=== PATIENT | male | born 1995 | race Caucasian/White ===

== ENCOUNTER → 2024-04-15 | Outpatient (REF) | payer OTHER ==
[~2024-04-15] MED LIST: CEPH500C PO
[2024-04-15 14:27] LABS: Trichomonas vaginalis (AMP) NOT DETECTED (NEGATIVE)
[2024-04-15 14:51] LABS: GC DNA AMPLIFICATION NEGATIVE (NEGATIVE)
[2024-04-15 19:42] LABS: ALBUMIN 4.2 G/DL (3.2-5.2); ALKALINE PHOSPHATASE 62 U/L (40-129); ALT/SGPT 21 U/L (7.0-40); AST/SGOT 11 U/L (<34); BILIRUBIN,TOTAL 0.4 MG/DL (0.3-1.2); BLOOD UREA NITROGEN 12 MG/DL (9-23); CALCIUM LEVEL 9.6 MG/DL (8.5-10.1); CARBON DIOXIDE LEVEL 30 MMOL/L (20-31); CHLORIDE LEVEL 105 MMOL/L (98-107); CHOLESTEROL LEVEL 138 MG/DL (<200); CHOLESTEROL RISK RATIO 3.46 (<5); CREATININE FOR GFR 1.02 MG/DL (0.70-1.30); GLOMERULAR FILTRATION RATE > 60.0 (>60); GLUCOSE, FASTING 85 MG/DL (60-100); HDL CHOLESTEROL 39.8 MG/DL (>40); LDL CHOLESTEROL 71.8 MG/DL (<100); NON-HDL-C 98.2 MG/DL; SODIUM LEVEL 139 MMOL/L (136-145); TOTAL PROTEIN 7.2 G/DL (5.7-8.2); TRIGLYCERIDES LEVEL 132 MG/DL (<150)
[2024-04-15 19:43] LABS: THYROID STIMULATING HORMONE 0.768 uIU/ML (0.55-4.78)
[2024-04-15 19:55] LABS: HEMOGLOBIN A1c 4.9 % (4.0-6.0)
== END ==
LOC: M LAB REF 12:49
PROVIDERS: ATTEND Family Medicine Addiction Medicine
DX: Z11.9 Encounter for screening for infectious and parasitic diseases, unspecified (principal); E66.9 Obesity, unspecified; E55.9 Vitamin D deficiency, unspecified